=== PATIENT | male | born 1975 | race Caucasian/White ===

== ENCOUNTER 2020-12-18 15:28 | Emergency (ER) | payer OTHER ==
[~2020-12-18] VITALS: Ht 185.4 cm; Wt 115.7 kg
[2020-12-18 16:51] VITALS: BP 141/84
[2020-12-18] MEDS ORDERED: methylPREDNISolone ACETATE 80 MG/ML VIAL. IM ONE (17:00)
[2020-12-18] MEDS ORDERED: HYDROcodone/APAP 5/325MG 1 TAB TABLET PO ONE (17:00)
[2020-12-18] MEDS ORDERED: KETOROLAC 60 MG/2 ML VIAL. IM ONE (17:00)
[2020-12-18] MEDS ORDERED: CYCLOBENZAPRINE 10 MG TABLET. PO ONE (17:00)
[2020-12-18] MEDS ORDERED: HYDROcodone/APAP 5/325MG 1 TAB TABLET ONE (17:09)
[2020-12-18] MEDS ORDERED: CYCL-331 PO (17:11)
[2020-12-18] MEDS ORDERED: IBUP600T16 PO (17:11)
--- NOTE | 2020-12-18 17:11 | PHYS DOC ---
Past History Past Medical History: No Pertinent History, GERD Additional Past Medical Histor: HX OF A HERNIATED DISC Past Surgical History: No Surgical History Alcohol Use: None Adult General Chief Complaint Chief Complaint: BACK PAIN OR INJURY [facility] HPI Patient is a 45-year-old male complains of sciatica flareup over the past 3 wee , patient states that he has gone to the chiropractor with some relief, patient states that he has a history of bulging disks, hurts on bilateral low back with pain radiation down his left leg to just above his knee. Patient states this is a typical sciatica flareup for him. Patient states he took 2 regular strength Tylenol at 11 AM today without relief. Reports his pain is a 0 when sitting still, however increases to a 10 out of 10 pain when he stands or ambulates. Patient reports an allergy to penicillin, states he takes Dexilant for acid reflux disease, sees Dr. Perera for primary care. Patient denies acute injury to his back, denies urinary retention or loss of bowel or bladder, denies numbness or tingling to his buttocks or periarea. Patient denies any other physical complaints or physical concerns. Review of Systems Review of Systems 14 body systems of review of systems have been reviewed. See HPI for pertinent positives and negative responses, otherwise all other systems are negative, nonpertinent or noncontributory. Current Medications Current Medications Current Medications Medications (Trade) Dose Ordered Sig/Rebecca Start Time Stop Time Status Last Admin Dose Admin Acetaminophen/ Hydrocodone Bitart (Lortab 5/325) 1 tab 1X ONCE 12/18/20 17:00 12/18/20 17:01 UNV Cyclobenzaprine HCl (Flexeril) 10 mg 1X ONCE 12/18/20 17:00 12/18/20 17:01 UNV Ketorolac Tromethamine (Toradol Im) 60 mg 1X ONCE 12/18/20 17:00 12/18/20 17:01 UNV Methylprednisolone Acetate (DEPO-Medrol IM) 80 mg 1X ONCE 12/18/20 17:00 12/18/20 17:01 UNV Allergies Allergies Allergies Coded Allergies Type Severity Reaction Last Updated Verified Penicillins Allergy Unknown 03/19/14 Yes Physical Exam Physical Exam Constitutional: Well developed, well nourished, no acute distress, non-toxic appearance. 45-year-old male in no apparent distress. HENT: Normocephalic, atraumatic. Eyes: Conjunctiva normal, no discharge. Neck: Normal range of motion, no tenderness, supple, no stridor. No nuchal rigidity, no meningeal signs. Cardiovascular: No cyanosis appreciated, distal cap refill less than 2 seconds. Lungs & Thorax: Patient in no respiratory distress, no audible adventitious lung sounds appreciated. Skin: Warm, dry, no erythema, no rash. Back: No CVA tenderness on the left or right, no thoracic midline spinal tenderness, there is midline lumbar tenderness near L5-S1 with bilateral lumbar musculoskeletal tenderness, radiation of pain down left posterior thigh, no loss of sensation, distal cap refill less than 2 seconds, no erythema or edema appreciated, 2+ dorsalis pedis/posterior tibial pulses. Extremities: No tenderness, no cyanosis, no clubbing, ROM intact, no edema. Neurologic: Alert and oriented X 3, normal motor function, normal sensory function, no focal deficits noted. Psychologic: Affect normal, judgement normal, mood normal. Current Patient Data Vital Signs Vital Signs Date Time Temp Pulse Resp B/P (MAP) Pulse Ox O2 Delivery O2 Flow Rate FiO2 12/18/20 16:51 97.7 82 18 141/84 (103) 97 Room Air EKG EKG [] Radiology/Procedures Radiology/Procedures [] Heart Score C/O Chest Pain: No Risk Factors: Risk Factors: DM, Current or recent (<one month) smoker, HTN, HLP, family history of CAD, obesity. Risk Scores: Risk Factors: DM, Current or recent (<one month) smoker, HTN, HLP, family history of CAD, obesity. Course & Med Decision Making Course & Med Decision Making Pertinent Labs and Imaging studies reviewed. (See chart for details) 45-year-old male, vital signs reviewed, presents emergency department with complaints of sciatica flareup. Patient did not have signs of saddle anesthes ia, physical presentation and exam consistent with sciatica flareup. Will treat with 80 mg Depo-Medrol IM, 60 mg IM Toradol, 10 mg p.o. Flexeril, 1 tablet of 5/325 hydrocodone/acetaminophen. Discussed with patient imaging not indicated, patient agrees with this as it has not been his worst sciatica flareup. Patient states that he has had MRI evaluations in the past and does report having a bulging disc between L5 and S1. Patient gave verbal understanding of discharge home instructions, follow-up with PCP for ongoing pain management, return ER precaution concerns, patient was discharged home without incident. Dragon Disclaimer Dragon Disclaimer This electronic medical record was generated, in whole or in part, using a voice recognition dictation system. Departure Departure: Impression: Primary Impression: Lumbago Disposition: HOME / SELF CARE / HOMELESS Condition: GOOD Referrals: QUIRINO PERERA MD (PCP) Patient Instructions: Sciatica Additional Instructions: You were seen today in the emergency department for a sciatica flareup. You wer e treated with a steroid Depo-Medrol injection, a muscle relaxer called Flexeril, and IM injection of Toradol which is an NSAID, and given a tablet of [place] for acute pain. Please take prescribed medications as directed, follow-up with your primary care physician for ongoing pain management. Please return to the emergency department for worsening symptoms or other concerns. EMERGENCY DEPARTMENT GENERAL DISCHARGE INSTRUCTIONS Thank you for coming to [facility] (ED) today and trusting us with you care. We trust that you had a positivie experience in our Emergency Department. If you wish to speak to the department management, you may call the director at [phone]. YOUR FOLLOW UP INSTRUCTIONS ARE FOLLOWS: 1. Do you have a private Doctor? If you do not have a private doctor, please ask for a resource list of physicians or clinics that may be able to assist you with follow up care. 2. The Emergency Physician has interpreted your x-rays. The X-Ray specialist will also review them. If there is a change in the findings, you will be notified in 48 hours when at all possible. 3. A lab test or culture has been done, your results will be reviewed and you will be notified if you need a change in treatment. ADDITIONAL INSTRUCTIONS AND INFORMATION: 1. Your care today has been supervised by a physician who is specially trained in emergency care. Many problems require more than one evaluation for a complete diagnosis and treatment. We recommend that you schedule your follow up appointment as recommended to ensure complete treatment of you illness or injury. If you are unable to obtain follow up care and continue to have a problem, or if your condition worsens, we recommend that you return to the ED. 2. We are not able to safely determine your condition over the phone nor are we able to give sound medical advice over the phone. For these safety reasons, if you call for medical advice we will ask you to come to the ED for further evaluation. 3. If you have any questions regarding these discharge instructions please call the ED at [phone]. SAFETY INFORMATION: In the interest of safety, wellness, and injury prevention; we encourage you to wear your sealbelt, if you smoke; quite smoking, and we encourage family to use a protective helmet for bicycling and other sporting events that present an increased risk for head injury. IF YOUR SYMPTOMS WORSEN OR NEW SYMPTOMS DEVELOP, OR YOU HAVE CONCERNS ABOUT YOUR CONDITION; OR IF YOUR CONDITION WORSENS WHILE YOU ARE WAITING FOR YOUR FOLLOW UP APPOINTMENT; EITHER CONTACT YOUR PRIMARY CARE DOCTOR, THE PHYSICIAN WHOSE NAME AND NUMBER YOU WERE Brian SAAVEDRA, OR RETURN TO THE ED IMMEDIATELY. Scripts Ibuprofen (IBUPROFEN) 600 Mg Tablet 600 MG PO Q4-6HRS PRN for PAIN, #30 TAB 0 Refills Prov: ROE EVANS APRN 12/18/20 Cyclobenzaprine Hcl (CYCLOBENZAPRINE HCL) 10 Mg Tablet 1 TAB PO TID PRN PRN for PAIN, #12 TAB Prov: ROE EVANS APRN 12/18/20 Problem Qualifiers Primary Impression: Lumbago Chronicity: acute Back pain laterality: bilateral Sciatica presence: with sciatica Sciatica laterality: sciatica of left side Qualified Codes: M54.42 - Lumbago with sciatica, left side ROE EVANS APRN Dec 18, 2020 17:11
== END 2020-12-18 17:21 | disposition home or self-care (01) ==
LOC: ER 15:28
DX: M54.41 Lumbago with sciatica, right side (principal); M54.42 Lumbago with sciatica, left side; Z88.0 Allergy status to penicillin
CPT/HCPCS: 96372; 99284; J1040; J1885